=== PATIENT | female | born 1990 | race Two or more races ===

== ENCOUNTER 2019-05-17 06:41 | Observation (INO) | payer OTHER ==
[2019-05-17] MEDS ORDERED: PREN-96 PO (07:33)
[2019-05-17 08:23] LABS: Potassium 3.7 mmol/L (3.5-5.1)
[2019-05-17 08:24] LABS: Albumin 2.4 g/dL (3.4-5.0)
[2019-05-17 08:26] LABS: BUN/Creatinine Ratio 13.3
[2019-05-17 08:28] LABS: Bilirubin, Total 0.3 mg/dL (0.2-1.0); Total Protein 6.5 g/dL (6.4-8.2)
[2019-05-17 08:31] LABS: INR < 0.93 (0.9-1.15); Partial Thromboplastin Time 26.7 sec (23.64-32.05)
[2019-05-17 08:33] LABS: Basophils # (auto) 0 uL; Basophils % (auto) 0.6 % (0.0-2.0); Eosinophils # (auto) 0.3 uL; Eosinophils % (auto) 4.1 % (0.0-7.0); Hematocrit 37.9 % (36.0-46.0); Hemoglobin 12.7 g/dL (12.2-16.2); Lymphocytes # (auto) 1.9 uL; Lymphocytes % (auto) 24.8 % (10.0-50.0); Mean Corpuscular Hemoglobin 30.8 pg (28.0-32.0); Mean Corpuscular Hgb Conc. 33.6 g/dL (32.0-36.0); Mean Corpuscular Volume 91.8 fL (80.0-100.0); Monocytes # (auto) 0.7 uL; Monocytes % (auto) 9.4 % (0.0-12.0); Neutrophils # (auto) 4.7 uL; Neutrophils % (auto) 61.1 % (37.0-80.0); Platelet Count (auto) 154 10^3/uL (140-450); Red Blood Cells 4.13 10^6/uL (4.0-5.20); Red Cell Distribution Width 13.9 % (11.8-14.3); White Blood Cell 7.6 10^3/uL (4.4-10.8)
[2019-05-17 08:49] LABS: Urine Bacteria FEW /hpf (None Seen); Urine Blood Negative /uL (Negative); Urine Mucus FEW (None Seen); Urine Specific Gravity 1.011 (1.001-1.035); Urine WBC 22 /hpf (0 - 5)
[2019-05-17 08:57] LABS: Alcohol, Urine < 3.0 mg/dL (0-5); Amphetamine Screen, Urine NEGATIVE (NEGATIVE); Barbiturate Scree,Urine NEGATIVE (NEGATIVE); Benzodiazephine Screen, Urine NEGATIVE (NEGATIVE); Cannabinoid Screen, Urine NEGATIVE (NEGATIVE); Cocaine Screen, Urine NEGATIVE (NEGATIVE); Opiate Scree,Urine NEGATIVE (NEGATIVE); Phencyclidine Screen, Urine NEGATIVE (NEGATIVE)
[2019-05-18 04:10] LABS: RPR Non Reactive (Non Reactive)
[2019-05-18 08:06] LABS: Rubella Antibodies, IgG 1.91 index (Immune >0.99)
== END 2019-05-17 10:20 | disposition home or self-care (01) | DRG 566 ==
LOC: LDRP 06:41
PROVIDERS: ADMIT Obstetrics & Gynecology; ATTEND Obstetrics & Gynecology
DX: O48.0 Post-term pregnancy (principal); O26.893 Other specified pregnancy related conditions, third trimester; R10.2 Pelvic and perineal pain; Z3A.39 39 weeks gestation of pregnancy
CPT/HCPCS: 36415; 59025; 76805; 80053; 80307; 81001; 81002; 84112; 85025; 85610; 85730; 86592; 86703; 86762; 86850; 86900; 86901; 87340; G0378

== ENCOUNTER 2019-05-19 19:17 | Observation (INO) | payer OTHER ==
[~2019-05-19 19:17] MED LIST: PREN-96 PO
== END 2019-05-19 21:05 | disposition home or self-care (01) | DRG 566 ==
LOC: LDRP 19:17
PROVIDERS: ADMIT Specialist; ATTEND Specialist
DX: O26.893 Other specified pregnancy related conditions, third trimester (principal); Z3A.40 40 weeks gestation of pregnancy
CPT/HCPCS: 59025; 76818; 81002; G0378